=== PATIENT | male | born 1960 | race Caucasian/White ===

== ENCOUNTER 2018-09-08 10:29 | Inpatient (IN) | payer OTHER ==
[~2018-09-08] VITALS: Ht 180.3 cm; Wt 136.1 kg
[2018-09-08 10:33] VITALS: BP 148/81
[2018-09-08] MEDS ORDERED: CLARITIN10 MG PO (10:43)
[2018-09-08 10:51] LABS: URINE BLOOD 3+ (Negative); URINE CLARITY CLEAR; URINE COLOR DARK YELLOW; URINE GLUCOSE-RANDOM NEGATIVE (Negative); URINE KETONES NEGATIVE (Negative); URINE LEUKOCYTES-REFLEX 1+ (Negative); URINE PROTEIN 2+ (Negative); URINE SPECIFIC GRAVITY 1.025 (1.005-1.030)
[2018-09-08 11:01] LABS: ICTOTEST (BILI CONFIRMATORY) Positive (Negative); URINE BILIRUBIN 1+ (Negative); URINE NITRITE-REFLEX POSITIVE (Negative)
[2018-09-08 11:04] LABS: SQUAMOUS 0-3 Few /LPF (0-3); URINE WBC-REFLEX >25 Many /HPF (0-5); WBC CLUMPS Few (None Seen)
[2018-09-08 11:06] LABS: CASTS None Seen /LPF (None Seen); CRYSTALS None Seen /LPF (None Seen); MUCUS 0-3 Light strn/LPF (None Seen); URINE RBC >20 Many /HPF (0-2)
[2018-09-08 11:21] LABS: HEMATOCRIT 46.1 % (42.0-52.0); HEMOGLOBIN 15.6 gm/dL (14.0-18.0); MCH 29.6 pg (26.0-34.0); MCHC 33.9 g/dL (28.0-37.0); MCV 87.3 fL (80.0-100.0); MPV 9.5 fl. (7.2-11.1); NUCLEATED RBCS 0 /100WBC; PLATELET COUNT* 139 thou/uL (150-400); RBC 5.28 mil/uL (4.50-6.00); RDW-CV 13.4 % (10.5-14.5); WBC 29.7 thou/uL (4.0-11.0)
[2018-09-08 11:44] LABS: CALCIUM 8.7 mg/dL (8.5-10.1); CREATININE 1.4 mg/dL (0.6-1.3); POTASSIUM 4.4 mmol/L (3.5-5.1)
[2018-09-08 11:47] LABS: ALBUMIN 3.5 g/dL (3.4-5.0); TOTAL PROTEIN 7.2 g/dL (6.4-8.2)
[2018-09-08 12:01] LABS: ABSOLUTE LYMPHOCYTES 2.1 thou/uL (0.8-5.3); ABSOLUTE MONOCYTES 0.9 thou/uL (0.0-1.2); ABSOLUTE NEUTROPHILS 26.7 thou/uL (1.6-8.1); METAMYELOCYTES 1 %
[2018-09-08 12:02] LABS: PLATELET ESTIMATE DECREASED; TOXIC GRANULATION 1+
[2018-09-08 17:33] VITALS: BP 132/66
[2018-09-08 17:40] VITALS: BP 137/72
[2018-09-08 20:00] VITALS: BP 133/72
[2018-09-08 23:30] VITALS: BP 151/81
[2018-09-09] VITALS: BP 142/75
[2018-09-09 04:00] VITALS: BP 109/70
[2018-09-09 08:00] VITALS: BP 106/72
[2018-09-09 10:39] LABS: ABSOLUTE BASOPHILS 0.1 thou/uL (0.0-0.2); ABSOLUTE LYMPHOCYTES 0.9 thou/uL (0.8-5.3); ABSOLUTE MONOCYTES 1.6 thou/uL (0.0-1.2); ABSOLUTE NEUTROPHILS 20.2 thou/uL (1.6-8.1); BASOPHILS 0.2 %; HEMATOCRIT 43.1 % (42.0-52.0); HEMOGLOBIN 14.3 gm/dL (14.0-18.0); LYMPHOCYTES 4.1 %; MCH 29.3 pg (26.0-34.0); MCHC 33.1 g/dL (28.0-37.0); MCV 88.5 fL (80.0-100.0); MONOCYTES 6.9 %; MPV 10.2 fl. (7.2-11.1); NUCLEATED RBCS 0 /100WBC; PLATELET COUNT* 120 thou/uL (150-400); POLYS 88.8 %; RBC 4.87 mil/uL (4.50-6.00); RDW-CV 13.7 % (10.5-14.5); WBC 22.8 thou/uL (4.0-11.0)
[2018-09-09 10:56] LABS: ALBUMIN 2.7 g/dL (3.4-5.0); CALCIUM 8.2 mg/dL (8.5-10.1); CREATININE 1.3 mg/dL (0.6-1.3); POTASSIUM 3.7 mmol/L (3.5-5.1); TOTAL BILIRUBIN 1.4 mg/dL (<0.1-1.0); TOTAL PROTEIN 6.4 g/dL (6.4-8.2)
[2018-09-09 12:56] VITALS: BP 117/84
[2018-09-09 17:54] VITALS: BP 146/85
[2018-09-09 20:00] VITALS: BP 132/81
[2018-09-10] VITALS: BP 150/93
[2018-09-10 04:00] VITALS: BP 145/87
[2018-09-10 07:05] VITALS: BP 142/85
[2018-09-10 09:59] LABS: ABSOLUTE BASOPHILS 0.1 thou/uL (0.0-0.2); ABSOLUTE EOSINOPHILS 0.1 thou/uL (0.0-0.7); ABSOLUTE LYMPHOCYTES 1.3 thou/uL (0.8-5.3); ABSOLUTE MONOCYTES 1.4 thou/uL (0.0-1.2); ABSOLUTE NEUTROPHILS 15.7 thou/uL (1.6-8.1); BASOPHILS 0.6 %; EOSINOPHILS 0.3 %; HEMATOCRIT 42.7 % (42.0-52.0); HEMOGLOBIN 14.1 gm/dL (14.0-18.0); LYMPHOCYTES 6.9 %; MCH 29.2 pg (26.0-34.0); MCV 88.5 fL (80.0-100.0); MONOCYTES 7.5 %; NUCLEATED RBCS 0 /100WBC; PLATELET COUNT* 124 thou/uL (150-400); POLYS 84.7 %; RBC 4.83 mil/uL (4.50-6.00); WBC 18.5 thou/uL (4.0-11.0)
[2018-09-10 10:04] LABS: CALCIUM 8.2 mg/dL (8.5-10.1); CREATININE 1.1 mg/dL (0.6-1.3); POTASSIUM 4.3 mmol/L (3.5-5.1)
[2018-09-10 10:09] LABS: ALBUMIN 2.6 g/dL (3.4-5.0); TOTAL BILIRUBIN 0.5 mg/dL (<0.1-1.0); TOTAL PROTEIN 5.6 g/dL (6.4-8.2)
[2018-09-10 11:44] VITALS: BP 135/85
[2018-09-10 16:11] LABS: HEPATITIS B SURFACE AG Negative (Negative)
--- NOTE | 2018-09-10 16:55 | EKG ---
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
[2018-09-10 21:50] VITALS: BP 140/74
[2018-09-11 07:20] VITALS: BP 142/84
[2018-09-11 09:18] VITALS: BP 142/84
[2018-09-11] MEDS ORDERED: LEVAQUIN 750 M750 MG PO (09:47)
[2018-09-11 11:31] VITALS: BP 142/84
[2018-09-11] MEDS ORDERED: ACETAMINOPHEN325 MG PO (11:31)
[2018-09-11 14:10] LABS: % FREE PSA 19.9 % (()); FREE PSA 24.21 ng/mL
--- NOTE | 2018-09-12 11:57 | CON ---
[address] [address] CONSULTATION Name: CLIFTRINH Akira Room: [address] IN M.R.#: [id number] Admission: 09/08/18 Attend Phys: Timothy Hoang Discharge: 09/11/18 Date of : 58 Report #: [id number] THIS REPORT FOR: //name// CC: Flora Copelande Alondrasarahkeisha DATE OF SERVICE: 09/10/2018 ATTENDING PHYSICIAN: Dr. Field. REASON FOR EVALUATION: Acute prostatitis. HISTORY OF PRESENT ILLNESS: Chart reviewed, patient examined. This is a 57-year-old gentleman with history of prostatic hypertrophy, presented with urgency, frequency, lower quadrant as well as back pain, did have some fevers as well. Evaluation noted urinalysis with marked pyuria. Imaging showed a large prostate. PSA markedly elevated at 121. Blood cultures were collected and they are sterile thus far. He was placed on empiric therapy with levofloxacin. Overall, he states it is improved and has overall less pain associated with voiding in the pelvis. Denies any pulmonary or gastrointestinal-related complaints. Appetite has been good. ALLERGIES: None known. MEDICATIONS: Include acetaminophen, levofloxacin, fentanyl, ondansetron. PAST MEDICAL HISTORY: As noted above, prostate hypertrophy. SOCIAL HISTORY: Nonsmoker, no ethanol, no illicit drug use. FAMILY HISTORY: Noncontributory. REVIEW OF SYSTEMS: A 10-point review of systems otherwise was unremarkable except as noted in the above history of present illness. PHYSICAL EXAMINATION: GENERAL: He is alert, cooperative, appropriate, appears generally well nourished, mild distress. VITAL SIGNS: Temperature 97.8, pulse 83, respirations 18, blood pressure 142/85. SKIN: Warm, dry, no rashes. HEENT: Normocephalic. Extraocular muscles intact. NECK: Supple. LUNGS: Clear to auscultation. HEART: Regular. I do not appreciate any murmur. ABDOMEN: Obese, soft. There is some mild lower [place] [address] CONSULTATION Name: TRINH MENEZES Room: [address] IN .R.#: [id number] Admission: 09/08/18 Attend Phys: Timothy Hoang Discharge: 09/11/18 Date of : 58 Report #: [id number] palpation. No peritoneal signs. GENITOURINARY: Deferred. RECTAL: Deferred. LABORATORY DATA: Urinalysis greater than 25 white cells, 10-30 bacteria. Lactic acid of 2.0 initially. Electrolytes: Sodium 140, potassium 4.4, chloride 102, bicarbonate is 29, anion gap of 9, BUN and creatinine 22 and 1.4, glucose of 140. AST of 61, ALT of 81. Total protein of 72, albumin of 3.5. CBC: White count of 29.7, H and H 15.6 and 46.1, platelets of 139 and 1+ toxic granulations. CT of the pelvis, liver was otherwise unremarkable. Prostate is enlarged, measuring 6.6 cm in transverse diameter, mild circumferential wall thickening of the bladder with mild surrounding inflammation, minimal bilateral perinephric stranding, 3 sclerotic lesions in the iliac bones measuring up to 8 mm. CBC: White count of 22.8, H and H 14.3 and 43.1, platelets of 120. PSA 121.4. Acute hepatitis profile pending. Blood cultures sterile thus far. ASSESSMENT AND PLAN: Acute prostatitis in the setting of obstructive uropathy. We will continue empiric therapy with levofloxacin. Clinically, he seems to have responded to some degree. We will await culture results. Urology has been following on a long-term basis. Secondly, the elevated LFTs, whether these are part and parcel to the ongoing inflammation or something more chronic, we will await the acute hepatitis profile as well. At this point, he is not overtly toxic. We will monitor expectantly. He is encouraged to be active. <ELECTRONICALLY SIGNED> By: Martín Rubalcava MD 09/12/18 1157 [id number] Rubalcava MD /nt
== END 2018-09-11 12:38 | disposition home or self-care (01) | DRG 872 ==
LOC: M.ERS 10:29 → M.ORTHSURG 12:57 → M.TBA-ER 12:57 → M.2W 17:43 → M.ORTHSURG 09-10 16:41
PROVIDERS: Physician Assistant; ADMIT Internal Medicine
DX: A41.9 Sepsis, unspecified organism (principal); N17.9 Acute kidney failure, unspecified; N12 Tubulo-interstitial nephritis, not specified as acute or chronic; N41.0 Acute prostatitis; N40.1 Benign prostatic hyperplasia with lower urinary tract symptoms; E80.6 Other disorders of bilirubin metabolism; M89.9 Disorder of bone, unspecified; Z79.899 Other long term (current) drug therapy